=== PATIENT | male | born 1995 | race Caucasian/White ===

== ENCOUNTER → 2022-04-25 | Outpatient (REF) | payer BC ==
[2022-04-25 15:05] LABS: HIV 1&2 SCREEN CENTAUR NEGATIVE (NEGATIVE)
[2022-04-25 16:10] LABS: GC DNA AMPLIFICATION NEGATIVE (NEGATIVE)
== END ==
LOC: M LAB REF 12:12
PROVIDERS: ATTEND Physician Assistant Medical
DX: Z72.51 High risk heterosexual behavior (principal)

== ENCOUNTER → 2023-05-21 | Outpatient (CLI) | payer BC | LOC: M WUC 11:14 | PROVIDERS: ATTEND Nurse Practitioner Family | DX: M25.511 Pain in right shoulder (principal) ==

== ENCOUNTER → 2024-12-30 | Outpatient (CLI) | payer BC | LOC: M RAD 11:59 | PROVIDERS: ATTEND Nurse Practitioner Family | DX: R22.0 Localized swelling, mass and lump, head (principal) ==

== ENCOUNTER → 2025-01-03 | Outpatient (CLI) | payer BC ==
[~2025-01-03] MED LIST: LIDOCAINE 1% MDV 20ML VIAL SC ONE
[2025-01-03 14:10] VITALS: BP 168/89; TEMP 97.7; O2SAT 100
== END ==
LOC: M IRPRO 14:01
PROVIDERS: ATTEND Nurse Practitioner Family
DX: D48.7 Neoplasm of uncertain behavior of other specified sites (principal)

== ENCOUNTER → 2025-08-30 | Outpatient (REF) | payer BC ==
[2025-08-30 13:28] LABS: HEPATITIS C VIRUS ABY INDEX < 0.02 INDEX (<0.8)
[2025-09-02 17:18] LABS: BORRELIA SPECIES DNA NOT DETECTED (NOT DETECT)
[2025-09-02 21:07] LABS: LYME TOTAL ANTIBODY CIA <= 0.90 Index (<=0.90)
== END ==
LOC: M LAB REF 11:58
DX: R19.7 Diarrhea, unspecified (principal); R10.9 Unspecified abdominal pain; M25.50 Pain in unspecified joint; Z11.9 Encounter for screening for infectious and parasitic diseases, unspecified; R19.5 Other fecal abnormalities

== ENCOUNTER → 2025-09-06 | Outpatient (CLI) | payer BC | LOC: M RAD 10:49 | DX: R10.9 Unspecified abdominal pain (principal); R74.8 Abnormal levels of other serum enzymes ==

== ENCOUNTER → 2025-09-15 | Outpatient (CLI) | payer BC ==
[~2025-09-15] MED LIST changes: +ISOVUE-370 76% 100 ML VIAL ONE; -LIDOCAINE 1% MDV 20ML VIAL SC ONE
== END ==
LOC: M PLAIMG 12:36
DX: R10.9 Unspecified abdominal pain (principal); R19.5 Other fecal abnormalities
CPT/HCPCS: 74177; Q9967